=== PATIENT | female | born 1950 | race Caucasian/White ===

== ENCOUNTER → 2016-11-01 16:43 | Outpatient (CLI) | payer BC | END | disposition home or self-care (01) | LOC: D.MAMMO 08:00 | DX: Z12.31 Encounter for screening mammogram for malignant neoplasm of breast (principal) ==

== ENCOUNTER → 2016-12-11 14:44 | Outpatient (CLI) | payer BC | END | disposition home or self-care (01) | LOC: D.MAMMO 09:00 | DX: R92.8 Other abnormal and inconclusive findings on diagnostic imaging of breast (principal) ==

== ENCOUNTER 2018-01-01 07:05 | Day surgery (SDC) | payer MEDICARE, MEDICAID ==
[2017-12-31 09:40] LABS: HEMATOCRIT 38.2 % (36.0-48.0); HEMOGLOBIN 12.8 g/dL (12-16); MCH 30.6 pg (26.0-34.0); MCHC 33.5 g/dL (31.0-37.0); MCV 91.4 fL (80.0-100.0); MEAN PLATELET VOLUME 9.3 fL (7.4-10.4); RBC 4.18 10x6/uL (4.00-5.40); RDW 12.7 % (11.5-14.5); WBC 5.5 10x3/uL (4.8-10.8)
[~2018-01-01] VITALS: Ht 157.5 cm; Wt 79.4 kg
--- NOTE | ~2018-01-01 | OP ---
PATIENT NAME: MAC SABILLON MEDICAL RECORD: [id number] :52 LOCATION:[facility] ADMISSION DATE: SURGEON: MARYAN PORTILLO MD DATE OF OPERATION: 01/01/2018 PREOPERATIVE DIAGNOSES: Rotator cuff tear of the left shoulder with impingement syndrome and acromioclavicular arthritis. POSTOPERATIVE DIAGNOSES: Rotator cuff tear of the left shoulder with impingement syndrome and acromioclavicular arthritis. PROCEDURES: 1. Arthroscopic rotator cuff repair, left shoulder. 2. Arthroscopic distal clavicle excision done through separate incision - 1 cm. 3. Arthroscopic subacromial decompression with acromioplasty and bursectomy. SURGEON: Maryan Portillo MD ANESTHESIA: General. INTRAOPERATIVE COMPLICATIONS: None. SUMMARY OF PATHOLOGIC FINDINGS: The patient has a complete rotator cuff tear just posterior to the biceps tendon. Biceps tendon was in overall good condition. Small labral tearing was seen. Nothing substantially significant. 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 The patient had profound excoriation of the coracoacromial ligament as well as acromioclavicular arthritis. OPERATIVE SUMMARY IN DETAIL: After obtaining the appropriate preoperative orthopedic surgery consent as well as anesthetic consultation, evaluation and clearance, the patient was brought to the operating room and placed on the operating table in supine position. After adequate general laryngeal mask airway was administered, the patient was placed in right lateral decubitus position. All pressure points well padded to include down leg peroneal pad as well as axillary roll. The patient was held firmly due to the operating table using the vacuum pack suction system. The patient's left upper extremity and shoulder were then prepped and draped in routine sterile fashion. The arm was held in the [employer] traction boom in 30 degrees of forward flexion, 30 degrees of abduction, and 10 pounds of traction laterally. Arthroscopy was established in the glenohumeral joint from posterior portal. Anterior portal was established in the anterior safe interval. Diagnostic arthroscopy revealed the above findings. Transarthroscopic rotator cuff for tear was created for debridement of the undersurface of the rotator cuff tearing of all nonviable-appearing rotator cuff fibers. A slight labral debridement was then followed by establishment of the arthroscopy in the subacromial space. In the subacromial space, surface tissue ablation system was utilized to denude the undersurface of the acromion of all soft tissue elements and release the coracoacromial ligament. A 5-0 barrel bur was used to perform acromioplasty at the level of acromioclavicular joint done through a separate anterior arthroscopic portal under direct arthroscopic visualization, distal clavicle was excised approximately 1 cm and all osteophytes were taken down. Having completed this, attention was returned to the rotator cuff. Further decortication was carried out of the supraspinatus tendinous footprint. This was then followed by removal of all bursa seen in the area. A #2 FiberTape was OPERATIVE REPORT [id number] MAC SABILLON LALO then passed in inverted mattress style fashion and it was anchored laterally with a 5.5 SwiveLock from [employer] which resulted in good reapproximation of the rotator cuff tissue back to the supraspinatus tendinous footprint. Having completed this, arthroscopy portals were closed in routine interrupted fashion using 4-0 Prolene. Sterile dressings were applied. The patient was awakened and taken to the recovery room in stable condition. All final needle and sponge counts were correct. TRANSINT:[id number] Voice Confirmation ID: [id number] DOCUMENT ID: [id number] LINDSEY HENSLEY, MARYAN MATHEWS at 1528 CC: [id number] DICTATION DATE: 01/01/18 1019 PLUG SORTER: 01/01/18 1032 [facility] [address] [place] [address]
[~2018-01-01 07:05] MED LIST: CYCLOBENZAPRINE10 MG PO; GABAPENTIN100 MG PO; IBUPROFEN800 MG PO; OMEPRAZOLE20 M1 PO; ULTRAM50 MG PO
[2018-01-01 08:34] VITALS: BP 147/76; Ht 157.5 cm; Wt 79.4 kg
[2018-01-01] MEDS ORDERED: DILAUDID2 MG PO (10:17)
== END 2018-01-01 20:07 | disposition home or self-care (01) ==
LOC: D.OPS 07:05 → D.PAN 09:00 → D.OPS 11:45 → D.PAN 11:45 → D.OPS 20:07
PROVIDERS: Anesthesiology
DX: M75.122 Complete rotator cuff tear or rupture of left shoulder, not specified as traumatic (principal); M75.42 Impingement syndrome of left shoulder; M13.812 Other specified arthritis, left shoulder; Z01.812 Encounter for preprocedural laboratory examination

== ENCOUNTER → 2018-02-03 06:42 | Outpatient (CLI) | payer MEDICARE ==
[2018-01-01 08:34] VITALS: BMI 32.1
[~2018-02-03 06:42] MED LIST changes: +BENADRYL25 MG PO; +DEMEROL100 MG PO; +DILAUDID2 MG PO
== END | disposition home or self-care (01) ==
LOC: D.MRI 06:42
DX: M25.512 Pain in left shoulder (principal)

== ENCOUNTER → 2018-02-26 06:30 | Day surgery (SDC) | payer MEDICARE ==
[2018-02-25 09:58] LABS: HEMATOCRIT 36.7 % (36.0-48.0); HEMOGLOBIN 12.2 g/dL (12-16); MCH 30.4 pg (26.0-34.0); MCHC 33.2 g/dL (31.0-37.0); MCV 91.5 fL (80.0-100.0); MEAN PLATELET VOLUME 9.6 fL (7.4-10.4); RBC 4.01 10x6/uL (4.00-5.40); RDW 12.7 % (11.5-14.5); WBC 5.3 10x3/uL (4.8-10.8)
[~2018-02-26] VITALS: Ht 157.5 cm; Wt 79.4 kg
--- NOTE | ~2018-02-26 | OP ---
PATIENT NAME: MAC SABILLON MEDICAL RECORD: [id number] :51 LOCATION:[facility] ADMISSION DATE: SURGEON: MARYAN PORTILLO MD DATE OF OPERATION: 02/26/2018 PREOPERATIVE DIAGNOSIS: Residual biceps tendinitis as well as recurrent rotator cuff tear. PROCEDURES: 1. Arthroscopic revision rotator cuff repair. 2. Arthroscopic biceps tenotomy. SURGEON: Maryan Portillo MD ANESTHESIA: General. INTRAOPERATIVE COMPLICATIONS: None. SUMMARY OF PATHOLOGIC FINDINGS: Consistent with the patient's preoperative diagnosis, she had a recurrent tear posterior to the previous tear that was fixed in a double row fashion. The rest of the rotator cuff seemed to be very nicely healed and this was a very small punctate, however, very real [id number] full-thickness rotator cuff tear of the biceps tendonitis was noted. OPERATIVE SUMMARY IN DETAIL: After obtaining the appropriate preoperative orthopedic surgery consent as well as anesthetic consultation, evaluation, and clearance, the patient was brought to the operating room and placed on the operating table in the supine position. After general laryngeal mask was administered, the patient was placed in left lateral decubitus position. All pressure points were well padded to include down leg peroneal pad as well as axillary roll. The patient was held firmly to the operating table using the vacuum pack suction system. Left upper extremity and shoulder were then prepped and draped in routine sterile fashion. The arm was held in the Arthrex traction boom at 30 degrees of forward flexion, 30 degrees of abduction, and 10 pounds of traction laterally. Arthroscopy was established in the glenohumeral joint from the posterior portal. Anterior portal was established in the anterior safe interval. Diagnostic arthroscopy did reveal the patient had the above findings. First, attention was turned to the tenotomy. Gravity tissue ablation system from [employer] was then utilized to gently tenotomize the biceps tendon at the bicipital labral junction and then the transarthroscopic rotator cuff portal was created for debridement of the undersurface tearing as well as further decortication of the supraspinatus tendinous footprint. Attention was then turned to the subacromial space. It was noted that an adequate decompression already had been done and so further decortication was carried out on the nonarticular aspect of the rotator cuff. An inverted #2 FiberTape was then utilized to bring the rotator cuff back out over the supraspinatus tendinous footprint. This was anchored laterally with a 5.5 SwiveLock from [employer]. Having completed this, arthroscopy portals were closed in routine interrupted fashion using 4-0 Prolene. Sterile dressings were applied. The patient was awakened and taken to the recovery room in stable condition. All final needle and sponge counts were correct. TRANSINT:[id number] Voice Confirmation ID: [id number] DOCUMENT ID: [id number] OPERATIVE REPORT [id number] MAC SABILLON MD, MARYAN MATHEWS at 0844 CC: [id number] DICTATION DATE: 02/27/18 1311 FOOD SERVICE ORDER CLERK: 02/27/18 1321 [facility] 02/26/18 [id number] [place] [address]
[2018-02-26 07:17] VITALS: Ht 157.5 cm; Wt 79.4 kg
== END | disposition home or self-care (01) ==
LOC: D.OPS 06:30 → D.PAN 07:30 → D.OPS 07:30 → D.PAN 08:30
PROVIDERS: Anesthesiology
DX: S43.421A Sprain of right rotator cuff capsule, initial encounter (principal); M75.21 Bicipital tendinitis, right shoulder

== ENCOUNTER → 2018-06-05 08:30 | Outpatient (CLI) | payer MEDICARE ==
[2018-02-26 07:17] VITALS: BMI 32.1
== END | disposition home or self-care (01) ==
LOC: D.MRI 08:30
DX: M79.642 Pain in left hand (principal)

== ENCOUNTER → 2018-07-13 10:40 | Outpatient (CLI) | payer MEDICARE ==
[2018-02-26 07:17] VITALS: BMI 32.1
== END | disposition home or self-care (01) ==
LOC: D.US 10:40
PROVIDERS: ATTEND Family Medicine
DX: R22.42 Localized swelling, mass and lump, left lower limb (principal)

== ENCOUNTER 2018-07-23 08:32 | Day surgery (SDC) | payer MEDICARE ==
[2018-07-22 13:20] LABS: HEMATOCRIT 36.2 % (36.0-48.0); MCHC 33.1 g/dL (31.0-37.0); MCV 90.5 fL (80.0-100.0); MEAN PLATELET VOLUME 9.1 fL (7.4-10.4); RDW 12.8 % (11.5-14.5); WBC 6.3 10x3/uL (4.8-10.8)
[~2018-07-23] VITALS: Ht 157.5 cm; Wt 79.4 kg
[2018-07-23 06:10] VITALS: Ht 157.5 cm; Wt 79.4 kg
[2018-07-23] MEDS ORDERED: DEMEROL100 MG PO (09:00)
--- NOTE | 2018-07-23 09:50 | OP ---
PATIENT NAME: MAC SABILLON MEDICAL RECORD: [id number] :52 LOCATION:[facility] ADMISSION DATE: SURGEON: MARYAN PORTILLO MD DATE OF OPERATION: 07/23/2018 PREOPERATIVE DIAGNOSIS: Extensor tenosynovitis second dorsal compartment. POSTOPERATIVE DIAGNOSIS: Extensor tenosynovitis second dorsal compartment. PROCEDURE: Tenosynovectomy and release of second dorsal compartments. SURGEON: Maryan Portillo MD ANESTHESIA: General. INTRAOPERATIVE COMPLICATIONS: None. SUMMARY OF PATHOLOGIC FINDINGS: The patient had extensive stenosing tenosynovitis of the second dorsal compartment. OPERATIVE SUMMARY IN DETAIL: After obtaining the appropriate preoperative orthopedic surgery consent, as well as anesthetic consultation, evaluation and clearance, the patient was brought to the operating room and placed on the operating table in supine position. After adequate general laryngeal mask airway was administered, tourniquet was placed about the proximal aspect of the right upper extremity. Right upper extremity was then prepped and draped in routine sterile fashion. The arm was elevated and exsanguinated, tourniquet was inflated to 250 mmHg. An incision was made directly over the second dorsal compartment. It was exposed. Care was taken to avoid neurovascular structures. With direct exposure, the second dorsal compartment was incised in its entirety and the tenosynovitis was excised. Having completed this, the wound was copiously irrigated and closed with 4-0 Prolene in running fashion. Sterile dressings were applied. Tourniquet was deflated. The patient was awakened and taken to recovery room in stable condition. All final needle and sponge counts were correct. TRANSINT:[id number] Voice Confirmation ID: [id number] DOCUMENT ID: [id number] MARYAN PORTILLO MD at 0950 CC: [id number] DICTATION DATE: 07/23/18 0904 REGISTERED TRAVEL NURSE: 07/23/18 0911 [facility] [id number] [place] [address]
--- NOTE | 2018-07-23 10:12 | NUR ---
DC INSTRUCTIONS GIVEN TO PT'S FAMILY. STATES UNDERSTANDING. DC'D IV CATH FULLY INTACT.
--- NOTE | 2018-07-23 10:33 | NUR ---
PT LEFT UNIT VIA WC AT 1033
== END 2018-07-23 10:33 | disposition home or self-care (01) ==
LOC: D.OPS 08:32
PROVIDERS: Anesthesiology; ATTEND Orthopaedic Surgery
DX: M65.832 Other synovitis and tenosynovitis, left forearm (principal); Z01.812 Encounter for preprocedural laboratory examination

== ENCOUNTER → 2018-08-06 12:28 | Outpatient (CLI) | payer MEDICARE ==
[2018-07-23 06:10] VITALS: BMI 32.1
== END | disposition home or self-care (01) ==
LOC: D.MRI 08-04 13:00
PROVIDERS: ATTEND Obstetrics & Gynecology
DX: M79.605 Pain in left leg (principal); R60.0 Localized edema

== ENCOUNTER → 2018-09-04 16:48 | Outpatient (CLI) | payer MEDICARE ==
[2018-07-23 06:10] VITALS: BMI 32.1
== END | disposition home or self-care (01) ==
LOC: D.MAMMO 11:00
PROVIDERS: ATTEND Family Medicine
DX: Z12.31 Encounter for screening mammogram for malignant neoplasm of breast (principal)

== ENCOUNTER → 2018-09-30 17:07 | Outpatient (CLI) | payer MEDICARE ==
[2018-07-23 06:10] VITALS: BMI 32.1
== END | disposition home or self-care (01) ==
LOC: D.MAMMO 09:30
PROVIDERS: ATTEND Family Medicine
DX: R92.8 Other abnormal and inconclusive findings on diagnostic imaging of breast (principal)